=== PATIENT | male | born 1970 ===

== ENCOUNTER 2017-05-28 09:29 | Emergency (ER) | payer OTHER ==
[2017-05-28 09:47] VITALS: BP 136/86; PULSE 56; RESP 16; TEMP 97.9; O2SAT 96
[2017-05-28] MEDS ORDERED: Sodium Chloride 0.9% 1,000 ML IV ONE (09:52)
[2017-05-28] MEDS ORDERED: Bismuth Subsalicylate 262 mg Chew Tab PO STA (09:54)
[2017-05-28 10:03] LABS: URINE BILIRUBIN NEGATIVE (NEGATIVE); URINE BLOOD NEGATIVE (NEGATIVE); URINE CLARITY Clear (Clear); URINE COLOR Yellow (YELLOW); URINE GLUCOSE (UA) NORMAL (Normal); URINE LEUKOCYTE ESTERASE NEG Leu/uL (Negative); URINE NITRATE NEGATIVE (NEGATIVE); URINE PROTEIN NEGATIVE (NEGATIVE); URINE UROBILINOGEN NORMAL mg/dL (0.2-1.0)
[2017-05-28] MEDS ORDERED: Sodium Chloride 0.9% 1,000 ML ONE (10:03)
[2017-05-28 10:22] LABS: BASO % 0.7 % (0.0-2.0); EOS # 0.1 K/uL (0.0-0.7); HEMOGLOBIN 13.9 g/dL (12.0-18.0); LYMPH # 1.7 K/uL (1.0-4.3); MEAN CELL VOLUME 86.5 fL (80.0-94.0); MEAN CORPUSCULAR HEMOGLOBIN 29.4 pg (27.0-31.0); MEAN PLATELET VOLUME 8.3 fL (7.2-11.7); MONO # 0.5 K/uL (0.0-0.8); MONO % 7.5 % (0.0-10.0); NEUT # 4.1 K/uL (1.8-7.0); NEUT % 63.8 % (50.0-75.0); RBC 4.71 Mil/uL (4.40-5.90); RED CELL DISTRIBUTION WIDTH 13.2 % (11.5-14.5); WHITE BLOOD COUNT 6.4 K/uL (4.8-10.8)
[2017-05-28 10:52] LABS: ALB/GLOB RATIO 1.3 (1.0-2.1); AST/SGOT 37 U/L (17-59); GFR AFRICAN-AMERICAN > 60; GFR NON-AFRICAN AMERICAN > 60
[2017-05-28 10:53] LABS: ALT/SGPT 43 U/L (21-72); BLOOD UREA NITROGEN 10 mg/dL (9-20); CALCIUM 8.8 mg/dl (8.6-10.4); LIPASE 44 U/L (23-300)
--- NOTE | 2017-05-28 11:07 | C.PDOC ---
History Of Present Illness Patient is a 47 y/o male that presents to the emergency department for evaluation of vomiting and diarrhea for the last 2 days. Patient states that he developed these symptoms within an hour after eating food 2 days ago. Describes the stomach as feeling "unsettled" but denies any pain. Patient states his symptoms improved yesterday but returned last night. Notes last episode of vomiting was at 6:00 this morning. Otherwise, denies any urinary symptoms, back pain, fever, chills, or any other associated symptoms at this time. Time Seen by Provider: 05/28/17 09:36 Chief Complaint (Nursing): Abdominal Pain History Per: Patient History/Exam Limitations: no limitations Onset/Duration Of Symptoms: Days (2) Current Symptoms Are (Timing): Still Present Context: Food Radiation Of Pain To:: None Associated Symptoms: Nausea, Vomiting, Diarrhea. denies: Fever, Chills, Loss Of Appetite, Back Pain, Chest Pain, Constipation, Urinary Symptoms Exacerbating Factors: None Alleviating Factors: None Recent travel outside of the [place]: No Additional History Per: Patient Past Medical History Reviewed: Historical Data, Nursing Documentation, Vital Signs Vital Signs: Last Vital Signs Temp 97.9 F 05/28/17 09:40 Pulse 56 L 05/28/17 09:40 Resp 16 05/28/17 09:40 BP 136/86 05/28/17 09:40 Pulse Ox 96 05/28/17 11:50 - Medical History PMH: Back Problems Family History: States: Unknown Family Hx - Social History Hx Tobacco Use: Yes Hx Alcohol Use: No Hx Substance Use: No - Immunization History Hx Tetanus Toxoid Vaccination: No Hx Influenza Vaccination: No Hx Pneumococcal Vaccination: No Review Of Systems Except As Marked, All Systems Reviewed And Found Negative. Constitutional: Negative for: Fever, Chills Cardiovascular: Negative for: Chest Pain Gastrointestinal: Positive for: Nausea, Vomiting, Abdominal Pain, Diarrhea. Negative for: Constipation, Hematochezia, Hematemesis Genitourinary: Negative for: Dysuria, Frequency, Incontinence, Hematuria Musculoskeletal: Negative for: Back Pain Skin: Negative for: Rash Physical Exam - Physical Exam Appears: Non-toxic, No Acute Distress Skin: Normal Color, Warm, Dry Head: Atraumatic, Normacephalic Eye(s): bilateral: Normal Inspection, EOMI Nose: Normal Oral Mucosa: Moist Neck: Normal ROM, Supple Chest: Symmetrical Cardiovascular: Rhythm Regular, No Murmur Respiratory: Normal Breath Sounds, No Rales, No Rhonchi, No Wheezing Gastrointestinal/Abdominal: Normal Exam, Soft, No Tenderness, No Guarding, No Rebound Back: CVA Tenderness Extremity: Normal ROM Neurological/Psych: Oriented x3, Normal Speech ED Course And Treatment - Laboratory Results Result Diagrams: 05/28/17 10:10 05/28/17 10:10 O2 Sat by Pulse Oximetry: 96 (on RA) Pulse Ox Interpretation: Normal Progress Note: Blood work, urinalysis ordered and reviewed. Patient was treated with Zofran, Pepto Bismol, and IV fluids. On re-eval, patient is resting comfortably, abdomen remains soft, non-tender and patient is tolerating PO. Pt denies any pain. Reports feeling better. Patient feels comfortable going home. Patient will be discharged home with instructions to follow up with PMD in 1-2 days. Disposition - Disposition Disposition: HOME/ ROUTINE Disposition Time: 11:10 Condition: STABLE Additional Instructions: Follow up with your primary medical doctor or clinic in 2-5 days for further evaluation. Take medications as prescribed. Return to the emergency department at any time if symptoms persist or worsen. Prescriptions: Bismuth Subsalicylate [Pepto Bismol] 262 mg PO QID #20 ctb Instructions: Acute Abdominal Pain (ED) - Clinical Impression Clinical Impression: Vomiting, Diarrhea - PA / NEON SIGN ERECTOR / Resident Statement MD/DO has reviewed & agrees with the documentation as recorded. - Scribe Statement The provider has reviewed the documentation as recorded by the Jesus Colbert All medical record entries made by the Jesus were at my direction and personally dictated by me. I have reviewed the chart and agree that the record accurately reflects my personal performance of the history, physical exam, medical decision making, and the department course for this patient. I have also personally directed, reviewed, and agree with the discharge instructions and disposition.
== END 2017-05-28 11:18 | disposition home or self-care (01) ==
LOC: C.ER 09:29
DX: R11.10 Vomiting, unspecified (principal); R19.7 Diarrhea, unspecified
CPT/HCPCS: 80053; 81001; 83690; 85025; 96361; 96374; 99285; J2405; J7040

== ENCOUNTER 2017-05-31 10:29 | Emergency (ER) | payer OTHER ==
[2017-05-31 10:41] VITALS: RESP 18
[2017-05-31] MEDS ORDERED: Pantoprazole 40 mg EC Tab PO STA (11:14)
[2017-05-31] MEDS ORDERED: Belladonna-Phenobarbital PO STA (11:14)
--- NOTE | 2017-05-31 11:17 | C.PDOC ---
History Of Present Illness 47 y/o male presents to ED with complaints of intermittent LUQ discomfort, described as a burning sensation x5 days. Pt seen here in ED 05/28 for the similar symptoms. Pt also reports associated symptoms of feeling gassy and burping frequently. Pt unsure if symptoms are related to eating. He has been taking Pepto Bismol without relief. Pt denies chest pain, SOB, abdominal pain, radiation, back pain, vomiting, fever, diarrhea, constipation, urinary symptoms or any other complaints. PMD none Time Seen by Provider: 05/31/17 10:40 Chief Complaint (Nursing): Abdominal Pain History Per: Patient History/Exam Limitations: no limitations Onset/Duration Of Symptoms: Days, Intermittent Episodes Current Symptoms Are (Timing): Still Present Severity: Moderate Location Of Pain/Discomfort: LUQ Radiation Of Pain To:: None Quality Of Discomfort: Burning Associated Symptoms: denies: Fever, Chills, Nausea, Vomiting, Diarrhea, Chest Pain, Urinary Symptoms Exacerbating Factors: None Alleviating Factors: None Recent travel outside of the [place]: No Past Medical History Reviewed: Historical Data, Nursing Documentation, Vital Signs Vital Signs: Last Vital Signs Temp 98.2 F 05/31/17 11:33 Pulse 68 05/31/17 11:33 Resp 18 05/31/17 11:33 BP 126/81 05/31/17 11:33 Pulse Ox 99 05/31/17 11:58 - Medical History PMH: Back Problems Family History: States: Unknown Family Hx - Social History Hx Tobacco Use: Yes Hx Alcohol Use: No Hx Substance Use: No - Immunization History Hx Tetanus Toxoid Vaccination: No Hx Influenza Vaccination: Yes Hx Pneumococcal Vaccination: No Review Of Systems Except As Marked, All Systems Reviewed And Found Negative. Constitutional: Negative for: Fever, Chills Cardiovascular: Negative for: Chest Pain Respiratory: Negative for: Shortness of Breath Gastrointestinal: Positive for: Other (LUQ discomfort). Negative for: Nausea, Vomiting, Abdominal Pain, Diarrhea Genitourinary: Negative for: Dysuria, Frequency, Hematuria Physical Exam - Physical Exam Appears: Well, Non-toxic, No Acute Distress Skin: Normal Color, Warm, Dry, No Rash Head: Atraumatic, Normacephalic Neck: Normal, Normal ROM, Supple Chest: Symmetrical Cardiovascular: Rhythm Regular, No Murmur Respiratory: Normal Breath Sounds, No Decreased Breath Sounds, No Accessory Muscle Use, No Rales, No Rhonchi, No Wheezing Gastrointestinal/Abdominal: Normal Exam, Bowel Sounds (normal), Soft, No Tenderness, No Organomegaly, No Mass, No Distention, No Guarding, No Rebound, Other (negative John's) Back: Normal Inspection, No CVA Tenderness, No Vertebral Tenderness, No Paraspinal Tenderness Extremity: Normal ROM, No Tenderness, No Swelling Neurological/Psych: Oriented x3, Normal Speech, Normal Cognition, Normal Cranial Nerves, Normal Motor, Normal Sensation ED Course And Treatment O2 Sat by Pulse Oximetry: 99 (room air) Pulse Ox Interpretation: Normal Medical Decision Making Medical Decision Makin47 y/o male presents to ED with complaints of intermittent LUQ discomfort, described as a burning sensation associated with burping and gassy sensation x5 days. PE today is wnl. Pt seen here in ED 05/28 for the similar symptoms. Labs done during that visit were wnl. Based on history and exam, pt is likely experiencing symptoms of Dyspepsia. Instructed patient of proper dieting and eating habits. Prescribed protonix and . Instructed to follow up with clinic. Return to the ER at any time for any new or worsening symptoms. Disposition - Disposition Referrals: [facility] [Outside] Disposition: HOME/ ROUTINE Disposition Time: 11:00 Condition: STABLE Additional Instructions: Follow up with the clinic in 2 days without fail for re-evaluation. Take medication as prescribed. Return to the ER at any time for any new or worsening symptoms. Prescriptions: Atropine/Hyoscyamine [] 1 tab PO TID PRN #20 tab PRN Reason: Dyspepsia Pantoprazole Sodium [Protonix] 40 mg PO DAILY #30 ect Instructions: Gastritis (ED), Chronic Indigestion (ED) Forms: Work Excuse Print Language: CZECH - Clinical Impression Clinical Impression: Dyspepsia - PA / MACHINE STRIPPER / Resident Statement MD/DO has reviewed & agrees with the documentation as recorded. - Scribe Statement The provider has reviewed the documentation as recorded by the Macoibdona Reynoso All medical record entries made by the Jesus were at my direction and personally dictated by me. I have reviewed the chart and agree that the record accurately reflects my personal performance of the history, physical exam, medical decision making, and the department course for this patient. I have also personally directed, reviewed, and agree with the discharge instructions and disposition.
[2017-05-31] MEDS ORDERED: Belladonna-Phenobarbital ONE (11:21)
[2017-05-31] MEDS ORDERED: Pantoprazole 40 mg EC Tab PO ONE (11:22)
[2017-05-31 11:34] VITALS: BP 126/81; PULSE 68; TEMP 98.2
[2017-05-31 11:54] VITALS: O2SAT 99
== END 2017-05-31 11:30 | disposition home or self-care (01) ==
LOC: C.ER 10:29
DX: R10.13 Epigastric pain (principal)